=== PATIENT | male | born 1965 | race Caucasian/White ===

== ENCOUNTER → 2017-08-16 | Outpatient (CLI) | payer OTHER | LOC: RAD 09:01 | DX: J98.11 Atelectasis (principal) ==

== ENCOUNTER → 2019-04-10 | Outpatient (CLI) | payer OTHER | LOC: CAT 08:52 | DX: Z13.6 Encounter for screening for cardiovascular disorders (principal); I25.10 Atherosclerotic heart disease of native coronary artery without angina pectoris; E78.00 Pure hypercholesterolemia, unspecified ==